=== PATIENT | male | born 1995 | race Hispanic/Latino ===

== ENCOUNTER 2018-01-08 17:18 | Emergency (ER) | payer OTHER ==
[2018-01-08 18:09] LABS: KETONE, URINE AUTO RFX NEGATIVE (NEGATIVE); NITRITE, URINE AUTO RFX NEGATIVE (NEGATIVE); RBC, URINE AUTO RFX TNTC /HPF (0-3); SPECIFIC GRAVITY UR AUTO RFX 1.019 (1.002-1.035); SQUAM EPITHELIAL CELL UR AURFX 0 /HPF (0-6)
[2018-01-08 18:10] LABS: LEUKOCYTE ESTERASE UR AUTO RFX 3+ (NEGATIVE); WBC, URINE AUTO RFX TNTC /HPF (0-3)
== END 2018-01-08 18:58 | disposition home or self-care (01) ==
LOC: M ED 17:18
DX: N30.91 Cystitis, unspecified with hematuria (principal)
CPT/HCPCS: 81001